=== PATIENT | male | born 1990 | race Caucasian/White ===

== ENCOUNTER 2021-04-02 23:45 | Emergency (ER) | payer BC ==
[2021-04-03] MEDS ORDERED: Ketorolac Tromethamine 30 MG/ML VIAL ONE (01:51)
== END 2021-04-03 02:08 | disposition home or self-care (01) ==
LOC: ERS 23:45
DX: S02.5XXA Fracture of tooth (traumatic), initial encounter for closed fracture (principal); I10 Essential (primary) hypertension; F17.210 Nicotine dependence, cigarettes, uncomplicated
CPT/HCPCS: 96372; 99282; J1885

== ENCOUNTER 2021-05-23 20:25 | Emergency (ER) | payer BC, SELFPAY ==
[~2021-05-23 20:25] MED LIST: Iopamidol 370 76% 100 ML VIAL ONE
[2021-05-23] MEDS ORDERED: Morphine 4 MG/ML VIAL ONE (20:34)
[2021-05-23 21:00] LABS: #Basophils 0.1 thou/uL (0.0-0.2); #Eosinphils 0.2 thou/uL (0.0-0.7); #Lymphocytes 3.6 thou/uL (1.20-3.40); #Monocytes 0.8 thou/uL (0.11-0.59); #Neutrophils 4.7 thou/uL (1.40-6.50); %Basophils 1.4 % (0.0-1.0); %Eosinophils 2.3 % (0.0-10.0); %Lymphocytes 37.5 % (21.0-51.0); %Monocytes 8.9 % (0.0-10.0); %Neutrophils 49.9 % (42.0-75.0); Hemoglobin 14.3 g/dL (14.0-18.0); Mean Corpuscular HGB CONC 33.6 g/dL (32.0-36.0); Mean Corpuscular Hemoglobin 29.4 pg (27.0-31.0); Mean Corpuscular Volume 87.4 fL (78.0-98.0); Mean Platelet Volume 7.1 fL (7.4-10.4); Platelet Count 320 thou/uL (130-400); RBC Distribution Width 11.3 % (11.5-14.5); Red Blood Cell (RBC) Count 4.85 mill/uL (4.70-6.10); White Blood Cell (WBC) Count 9.5 thou/uL (4.8-10.8)
[2021-05-23 21:26] LABS: ALT (SGPT) 16 U/L (8-55); AST (SGOT) 19 U/L (5-34); Albumin 4.2 g/dL (3.5-5.0); Alkaline Phosphatase 72 U/L (40-110); Anion Gap 19 mmol/L (10-20); BUN (Urea Nitrogen) 11 mg/dL (8.9-20.6); Bilirubin, Total 0.6 mg/dL (0.2-1.2); Calc. Creatinine Clearance 0 mL/min (70-130); Calcium 9.2 mg/dL (7.8-10.44); Carbon Dioxide 19 mmol/L (22-29); Chloride 106 mmol/L (98-107); Globulin 2.9 g/dL (2.4-3.5); Glucose 98 mg/dL (70-105); Potassium 3.5 mmol/L (3.5-5.1); Protein, Total 7.1 g/dL (6.0-8.3); Sodium 140 mmol/L (136-145)
== END 2021-05-23 23:00 | disposition home or self-care (01) ==
LOC: ERS 20:25
DX: M62.830 Muscle spasm of back (principal); I10 Essential (primary) hypertension; F17.210 Nicotine dependence, cigarettes, uncomplicated
CPT/HCPCS: 36415; 71260; 72125; 74177; 80053; 85025; 93005; 96374; J2270; Q9967

== ENCOUNTER 2021-09-19 19:06 | Emergency (ER) | payer SELFPAY ==
[2021-09-19 19:19] LABS: Actual Bicarbonate (HCO3a) 22.6 mEq/L (22-28); Analyzer IN Cardio ER; Base Excess (BEa) 1.8 mEq/L (-2.0 to +3.0); CO2 Tension 26.3 mmHg (35.0-45.0); Carboxyhemoglobin (COHb) 1.9 gm% (0.0-3.0); Hemoglobin (Hb) 15.6 g/dL (14.0-18.0); Potassium - ABG Lab 3.68 mmol/L (3.70-5.30)
[2021-09-19 19:20] LABS: pH, Arterial 7.55 (7.35-7.45)
[2021-09-19 19:21] LABS: Puncture Site LRA
[2021-09-19 19:26] LABS: ALV-art Gradient 8.855 mmHg (0-20)
== END 2021-09-19 19:45 | disposition home or self-care (01) ==
LOC: ERS 19:06
DX: T59.811A Toxic effect of smoke, accidental (unintentional), initial encounter (principal); R05.9 Cough, unspecified; I10 Essential (primary) hypertension; F17.210 Nicotine dependence, cigarettes, uncomplicated
CPT/HCPCS: 36600; 71045; 82805; 94640